=== PATIENT | male | born 1970 | race Caucasian/White ===

== ENCOUNTER 2017-04-03 06:11 | Emergency (ER) | payer SELFPAY ==
[~2017-04-03] VITALS: Ht 168.9 cm; Wt 77.0 kg
[~2017-04-03 06:11] MED LIST: LORTA5 PO; MOBI7.5T PO
[2017-04-03 06:15] VITALS: BP 137/83; PULSE 83; RESP 18; TEMP 98.3; O2SAT 96
[2017-04-03 06:29] VITALS: BP 134/81; PULSE 80; RESP 16; O2SAT 98
[2017-04-03] MEDS ORDERED: SODIUM CHLORIDE 0.9% FLUSH 10 ML FLUSH IVF PRN (06:45)
[2017-04-03] MEDS ORDERED: methylPREDNISolone SOD SUCC 125 MG/2 ML VIAL IV PUSH ONE (06:45)
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
--- NOTE | 2017-04-03 06:48 | RADRPT ---
EXAM DATE/TIME: 04/03/2017 06:38 [facility] COMPARISON: No previous studies available for comparison. INDICATIONS : Short of breath. MEDICAL HISTORY : Bronchitis. SURGICAL HISTORY : None. ENCOUNTER: Initial ACUITY: 1 day PAIN SCORE: 0/10 LOCATION: Bilateral chest FINDINGS: A single view of the chest demonstrates the lungs to be symmetrically aerated without evidence of mas s, infiltrate or effusion. The cardiomediastinal contours are unremarkable. Osseous structures are intact. CONCLUSION: No acute disease. Franki Echavarria MD on April 03, 2017 at 6:47 Board Certified Radiologist. This report was verified electronically.
[2017-04-03] MEDS: RESP: ALBUTEROL 2.5 MG/IPRATROPIUM 0.5 MG NEB (SCH) INH (06:50)
[2017-04-03 07:06] LABS: AUTOMATED NEUTROPHIL # 4.7 TH/MM3 (1.8-7.7); BASOPHIL % 0.4 % (0.0-2.0); EOSINOPHIL # 0.5 TH/MM3 (0-0.4); EOSINOPHIL % 4.7 % (0.0-4.0); HEMATOCRIT 47.2 % (39.0-51.0); HEMOGLOBIN 16.7 GM/DL (13.0-17.0); LYMPH % 39.4 % (9.0-44.0); LYMPHOCYTE # 3.8 TH/MM3 (1.0-4.8); MEAN CELL VOLUME 92.7 FL (80.0-100.0); MEAN CORPUSCULAR HEMOGLOBIN 32.8 PG (27.0-34.0); MEAN CORPUSCULAR HGB CONC 35.4 % (32.0-36.0); MEAN PLATELET VOLUME 10.5 FL (7.0-11.0); MONO % 6.7 % (0.0-8.0); MONOCYTE # 0.6 TH/MM3 (0-0.9); NEUT % 48.8 % (16.0-70.0); PLATELET COUNT 169 TH/MM3 (150-450); RED BLOOD COUNT 5.09 MIL/MM3 (4.50-5.90); RED CELL DISTRIBUTION WIDTH 12.6 % (11.6-17.2); WHITE BLOOD COUNT 9.5 TH/MM3 (4.0-11.0)
[2017-04-03 07:27] LABS: BICARBONATE 24.8 MEQ/L (21.0-32.0); CALCIUM 8.8 MG/DL (8.5-10.1); CREATININE 1.24 MG/DL (0.60-1.30)
[2017-04-03 10:00] VITALS: BP 107/61; PULSE 86; RESP 19; O2SAT 97
[2017-04-03] MEDS ORDERED: ZITHTAB PO (10:40)
--- NOTE | 2017-04-03 10:44 | PD ---
Data Data Last Documented VS Vital Signs Date Time Temp Pulse Resp B/P (MAP) Pulse Ox O2 Delivery O2 Flow Rate FiO2 04/03/17 06:29 80 16 134/81 (98) 98 Room Air 04/03/17 06:15 98.3 Orders Orders Complete Blood Count With Diff (04/03/17 06:34) Basic Metabolic Panel (Bmp) (04/03/17 06:34) Iv Access Insert/Monitor (04/03/17 06:34) Electrocardiogram (04/03/17 06:34) Ecg Monitoring (04/03/17 06:34) Oximetry (04/03/17 06:34) Oxygen Administration (04/03/17 06:34) Chest, Single Ap (04/03/17 06:34) Sodium Chloride 0.9% Flush (Ns Flush) (04/03/17 06:45) Methylprednisolone So Succ Inj (Solumedr (04/03/17 06:45) Albuterol-Ipratropium Neb (Duoneb Neb) (04/03/17 06:45) Labs Laboratory Tests Test 04/03/17 06:50 White Blood Count 9.5 TH/MM3 Red Blood Count 5.09 MIL/MM3 Hemoglobin 16.7 GM/DL Hematocrit 47.2 % Mean Corpuscular Volume 92.7 FL Mean Corpuscular Hemoglobin 32.8 PG Mean Corpuscular Hemoglobin Concent 35.4 % Red Cell Distribution Width 12.6 % Platelet Count 169 TH/MM3 Mean Platelet Volume 10.5 FL Neutrophils (%) (Auto) 48.8 % Lymphocytes (%) (Auto) 39.4 % Monocytes (%) (Auto) 6.7 % Eosinophils (%) (Auto) 4.7 % Basophils (%) (Auto) 0.4 % Neutrophils # (Auto) 4.7 TH/MM3 Lymphocytes # (Auto) 3.8 TH/MM3 Monocytes # (Auto) 0.6 TH/MM3 Eosinophils # (Auto) 0.5 TH/MM3 Basophils # (Auto) 0.0 TH/MM3 CBC Comment DIFF FINAL Differential Comment Blood Urea Nitrogen 17 MG/DL Creatinine 1.24 MG/DL Random Glucose 157 MG/DL Calcium Level 8.8 MG/DL Sodium Level 137 MEQ/L Potassium Level 4.1 MEQ/L Chloride Level 103 MEQ/L Carbon Dioxide Level 24.8 MEQ/L Anion Gap 9 MEQ/L Estimat Glomerular Filtration Rate 63 ML/MIN MDM Supervised Visit with GLORIA: No Narrative Course This case is checked out to me by Dr. Melgar 7 AM. I have reviewed the entirety of the workup and reevaluated the patient. He is resting comfortable he without acute shortness of breath or pain. His chest x-ray is negative for infiltrate. Labs are normal I prescribed him a Z-Bruce as previously discussed with Dr. Melgar. He does have history of congenital heart disease The patient was advised to follow up with their physician and return if they worsen. Diagnosis Primary Impression: Acute bronchitis Qualified Codes: J20.9 - Acute bronchitis, unspecified Additional Impression: Tetralogy of Fallot Additional Instruction: The patient was advised to follow up with their physician and return if they worsen. Med/Other Pt SpecificInfo: Prescription(s) given Scripts Azithromycin (Zithromax Z-Bruce) 250 Mg Dspk 250 MG PO DIRECTED for Infection, #1 DSPK 0 Refills 500 MG (2 tabs) day 1, then 1 tab days 2-5. Prov: Heriberto Rajan MD 04/03/17 Disposition: 01 DISCHARGE HOME Condition: Stable Heriberto Rajan MD Apr 03, 2017 10:44
[2017-04-03 10:54] VITALS: O2SAT 97
--- NOTE | 2017-04-03 19:55 | EKG ---
Date Performed: 04/03/2017 Time Performed: 06:46:09 PTAGE: 47 years EKG: Sinus rhythm WITH OCCASIONAL VENTRICULAR PREMATURE COMPLEXES RIGHT BUNDLE BRANCH BLOCK ABNORMAL ECG PREVIOUS TRACING : 07/06/2015 01.11 Since the prior tracing, there has been no significant hernandez DOCTOR: Lanie Chairez Interpretating Date/Time 04/03/2017 19:53:56
== END 2017-04-03 11:03 | disposition home or self-care (01) ==
LOC: NEPC 06:11
DX: J44.0 Chronic obstructive pulmonary disease with (acute) lower respiratory infection (principal); J20.9 Acute bronchitis, unspecified; Q21.3 Tetralogy of Fallot; F17.200 Nicotine dependence, unspecified, uncomplicated
CPT/HCPCS: 71045; 80048; 85025; 93005; 94640; 94664; 96374; 99285; J2930